=== PATIENT | female | born 1970 | race Caucasian/White ===

== ENCOUNTER 2025-06-01 09:12 | Emergency (ER) | payer OTHER, SELFPAY ==
[2025-06-01 09:13] VITALS: BP 217/102
[2025-06-01 11:09] VITALS: BP 219/143
--- NOTE | 2025-06-01 11:27 | ED.GENMED ---
History of Present Illness
General
Chief Complaint: Blood Pressure Problem
Source: patient
Time Seen by Provider: 06/01/25 10:49
History of Present Illness
History of Present Illness:
55-year-old female with past medical history of Maxine's thyroiditis presenting to the ER for evaluation after she had gone to urgent care for suture removal and they noticed her blood pressure was high so she decided to monitor her blood
pressure yesterday and noticed multiple readings of significantly elevated pressures which is what prompted her to come into the ER today. Patient reports that outside of some intermittent transient lightheadedness she is asymptomatic at present.
She does note having her levothyroxine changed recently due to this being underdosed but otherwise she is in her usual state of health. Patient notes that she exercises at least 3-4 times per week. She does note a significant family history for
hypertension. No other concerns presently.
Past History
Past History
ED Past Medical History: Hypothyroidism
ED Past Surgical History:
Social History
Tobacco: Non-smoker
Alcohol: Occasional
Drug: None
Personal:
Living: with family
Employment: Employed
Review of Systems
Review of Systems
All Other Systems: ROS reviewed and negative except as documented in HPI and ROS
Phy Exam
Physical Exam
Physical Exam:
GENERAL: Alert , in no apparent distress
HEAD: Normocephalic atraumatic
EYE: conjunctiva clear
NECK: Supple
ENT: o/p clr, mmm.
CARDIAC: Regular rate and rhythm
LUNGS: Clear breath sounds bilaterally, no acute respiratory distress, no wheezes/rales/rhonchi
NEUROLOGICAL: Alert and oriented
SKIN: Warm and dry, skin intact.
MUSCULOSKELETAL: well perfused.
PSYCH: Normal and appropriate interaction.
Scores
Heart Failure Risk
Heart Failure Risk Score: Not Applicable
Heart Score for Chest Pain Patients
STEMI patient?: Not applicable
Withdrawal Assessment of Alcohol
Withdrawal Assessment Completed?: Not applicable
Course
Orders/Labs/Results
Orders:
Orders
06/01/25 09:19
Electrocardiogram (*1) Urgent
Reason for Study: Chest Pain
EKG- Treatment ONCE
06/01/25 11:20
Amlodipine [Norvasc] 5 mg PO NOW STA
06/01/25 11:34
Complete Blood Count/With Diff Urgent
Comprehensive Metabolic Panel Urgent
Abnormal Lab Results
06/01/25
11:34
MCH 32.4 H pg
(27.0-31.0)
Absolute Neuts (auto) 6.7 H 10^3/uL
(1.4-6.5)
Neutrophils % 76.1 H %
(42.2-75.2)
Glucose 109 H mg/dl
(70-99)
Total Protein 8.8 H g/dl
(6.3-8.2)
06/01/25 11:34
06/01/25 11:34
Vital Signs
Initial and Last Documented VS:
Initial Vital Signs
Temp Pulse Resp BP Pulse Ox
98.2 F 105 20 217/102 98
06/01/25 09:13 06/01/25 09:13 06/01/25 09:13 06/01/25 09:13 06/01/25 09:13
Last Documented Vital Signs
Temp Pulse Resp BP Pulse Ox
98.2 F 91 17 193/97 96
06/01/25 09:13 06/01/25 12:15 06/01/25 12:15 06/01/25 12:05 06/01/25 12:15
MDM/Problems Addressed
Differential Diagnosis Includes:
undiagnosed hypertension
No symptoms to suggest endorgan dysfunction/ACS/renal dysfunction
Renal artery stenosis
Anxiety
MDM/Problems Addressed:
55-year-old female presenting to the ER for evaluation of elevated blood pressures at home as well as at the urgent care 2 days ago. Patient has no symptoms currently. Patient is profoundly hypertensive here. Will check labs to rule out any renal
disorder. Will initiate patient on 5 mg of amlodipine now as well as a prescription for this. Patient currently does not have a primary care provider due to an insurance change. Will notify the primary care referral line. Anticipate discharge
home with outpatient management.
*Pulse Oximetry
SaO2: 100
Oxygen Mode of Delivery: Room air
Patient hypoxic: no
*EKG
Heart Rate: 101
Rate: tachycardiac
Rhythm: sinus
[place]: normal axis
Ischemia: no ischemia
*[facility] Interpretation
Rate: normal
Heart Rate: 84
Rhythm: sinus
*Critical Care Note
Total Time (30-74mins, 75-104mins- exclusive of procedures): Not Applicable
Patient Management
Escalation/DeEscalation of care consider admission/obs:
Patient's blood pressure improved following observation here in the ER. Still with need for medications and close follow-up. Primary care referral line was notified and they will contact the patient. A 2-month supply of amlodipine 5 mg daily was
sent to patient's pharmacy. Patient aware of return precautions to the ER.
ED Attending Note
-
Portions of this chart may have been created with voice recognition software.� Occasional wrong word or��sound alike� substitutions may have occurred due to the inherent limitations of voice recognition software.
Discharge Plan
Departure
Patient Disposition: Home (Routine Discharge)
Date of Disposition: 06/01/25
Time of Disposition: 12:25
Patient with high blood pressure during this ER visit?: Yes
Discharge Problem:
Hypertension
Instructions: High Blood Pressure (DC)
Prescriptions:
New
amlodipine 5 mg tablet
5 mg PO DAILY Qty: 60 0RF
Referrals:
NONE,* [Family Provider, Internal Medicine]
Interventions
Interventions:
*Risk Screen - Suicide Last Done: 06/01/25 09:13
*General Assessment Last Done: 06/01/25 09:13
*Neglect/Abuse Screening Last Done: 06/01/25 09:13
*Nursing Disposition Last Done: 06/01/25 12:34
ED- Cardiac Assessment Last Done: 06/01/25 11:36
ED- Neurological Assessment Last Done: 06/01/25 11:36
ED- Pulmonary Assessment Last Done: 06/01/25 11:36
Discharge Date and Time
Discharge Date/Time: 06/01/25 12:34
Print Language: [employer] GUINE[employer]
[2025-06-01] MEDS: NORVASC 5 MG PO (11:33)
[2025-06-01 11:48] LABS: Hematocrit 42.9 % (37.0-47.0); Hemoglobin 14.9 g/dL (12.0-16.0); Mean Corp Hgb Conc. 34.7 g/dL (33.0-37.0); Mean Corpuscular Volume 93.3 fL (81.0-99.0); Nucleated Red Blood Cells % 0 %; Platelet Count 289 10^3/uL (130-400); Red Cell Dist. Width 12.9 % (11.5-14.5)
[2025-06-01 11:58] LABS: ALT (SGPT) 34 U/L (0-35); AST (SGOT) 29 U/L (14-36); Albumin 5.0 g/dl (3.5-5.0); Alkaline Phosphatase 90 U/L (38-126); Blood Urea Nitrogen 10 mg/dl (7-17); Calcium 9.6 mg/dl (8.4-10.2); Carbon Dioxide 24 mmol/L (22-30); Chloride 106 mmol/L (98-107); Glucose 109 mg/dl (70-99); Potassium 3.9 mmol/L (3.5-5.1); Sodium 139 mmol/L (135-145); Total Protein 8.8 g/dl (6.3-8.2); eGFR > 60.00
[2025-06-01 12:05] VITALS: BP 193/97
== END 2025-06-01 12:34 | disposition home or self-care (01) ==
LOC: EMR 09:12
PROVIDERS: Physician Assistant Medical; EMERGENCY PHYSICIAN Emergency Medicine
DX: I10 Essential (primary) hypertension (principal); E06.3 Autoimmune thyroiditis; Z82.49 Family history of ischemic heart disease and other diseases of the circulatory system
CPT/HCPCS: 99283; 80053; 85025; 93005